=== PATIENT | female | born 1950 | race Caucasian/White ===

== ENCOUNTER 2017-04-09 09:17 | Emergency (ER) | payer MEDICARE, MEDICAID ==
[~2017-04-09] VITALS: Ht 162.6 cm; Wt 75.0 kg
[~2017-04-09 09:17] MED LIST: ADVAIR DISK1 IN; ADVAIR DISK1 INH; AMITRIPTYLIN25 MG PO; ATORVASTATIN CA40 MG PO; BUPROPION150 M3 PO; CIPROFLOXACN500 MG PO; CLINDAMYCIN300 M1 PO; CREON24000 UNT PO; DULOXETINE HCL60 MG PO; FERROUS SULF324 M1 PO; FLEXERIL PO; FLUTICASONE PR50 MCG; LORTAB 7.5-3251 TAB PO; MOTRIN800 MG PO; NEXIUM40 M1 PO; OXYCODONE20 M1 PO; OXYCODONE5 MG PO; PHENERGAN25 MG/TAB PO; SOMA350 MG PO; SPIRIVA IN; STOOL SOFTENER PO; TEMAZEPAM30 MG PO; TUSSIONEX1 ML PO; TYLENOL # 31 TAB PO; VENTOLIN HF1 IN; ZITHROMAX250 MG PO; ZOLOFT50 MG PO
[2017-04-09] MEDS ORDERED: PERCOCET 5/325M1 TAB PO (09:40)
[2017-04-09 09:41] VITALS: BP 148/77
== END 2017-04-09 09:48 | disposition home or self-care (01) ==
LOC: ED 09:17
DX: S43.401A Unspecified sprain of right shoulder joint, initial encounter (principal); X50.0XXA Overexertion from strenuous movement or load, initial encounter; X50.3XXA Overexertion from repetitive movements, initial encounter; Y93.K1 Activity, walking an animal; Y92.009 Unspecified place in unspecified non-institutional (private) residence as the place of occurrence of the external cause

== ENCOUNTER 2017-06-24 05:37 | Day surgery (SDC) | payer MEDICARE, MEDICAID ==
[~2017-06-24] VITALS: Ht 162.6 cm; Wt 71.7 kg
[~2017-06-24 05:37] MED LIST changes: +BACLOFEN10 MG PO; +FLUOXETINE20 MG PO; +MORPHINE SUL15 MG PO; +MORPHINE SULFAT15 M1 PO; +PERCOCET 5/325M1 TAB PO; +RESTORIL15 M1 PO; +TYLENOL PM PO
[2017-06-24 09:35] VITALS: BP 127/71
[2017-06-24] MEDS ORDERED: PERCOCET 10/31 COMBO PO (09:37)
== END 2017-06-24 10:00 | disposition home or self-care (01) ==
LOC: ORM 05:37
PROVIDERS: ATTEND Orthopaedic Surgery
PROC: 0LN70ZZ Release Right Hand Tendon, Open Approach (ICD-10-PCS; principal; 2017-06-24)
PROC: 0LN70ZZ Release Right Hand Tendon, Open Approach (ICD-10-PCS; 2017-06-24)
PROC: 0LN70ZZ Release Right Hand Tendon, Open Approach (ICD-10-PCS; 2017-06-24)
DX: M65.321 Trigger finger, right index finger (principal); M65.341 Trigger finger, right ring finger; M65.351 Trigger finger, right little finger

== ENCOUNTER 2018-06-28 10:21 | Emergency (ER) | payer MEDICARE, MEDICAID ==
[~2018-06-28] VITALS: Ht 162.6 cm; Wt 65.0 kg
[~2018-06-28 10:21] MED LIST changes: +PERCOCET 10/31 COMBO PO
[2018-06-28 11:46] LABS: HEMATOCRIT 43.8 % (37.0-47.0); HEMOGLOBIN 14.3 g/dl (12.0-16.0); IMMATURE GRANULOCYTES 0.3 % (0.0-5.0); MEAN CELL VOLUME 95.4 fL CALC (80.0-100.0); MEAN CORPUSCULAR HGB 31.2 pG CALC (26.0-32.0); MEAN CORPUSCULAR HGB CONC 32.6 g/L CALC (32.0-36.0); NEUT# 7.97 thou/uL (2.00-7.15); RED BLOOD COUNT 4.59 mill/uL (4.20-5.60); RED CELL DISTRI WIDTH 14.7 % (11.5-15.5)
[2018-06-28 11:50] LABS: INTERNATIONAL NORMALIZED RATIO 1.1 RATIO (0.7-1.3); PROTHROMBIN TIME 11.2 SECONDS (9.0-12.5)
[2018-06-28 11:53] LABS: ALKALINE PHOSPHATASE 77 u/l (38-126); BILIRUBIN, TOTAL 0.7 mg/dL (0.0-1.4); BUN 11 mg/dL (8-23); BUN/CREATININE RATIO 15 (12-20 (CALC)); CARBON DIOXIDE 28 mmol/l (22-30); CHLORIDE 106 mmol/l (95-108); CREATININE 0.7 mg/dL (0.5-1.0); GFR > 60 ML/MIN (>=60 (CALC)); GFR FOR AFR.AMER. > 60 ML/MIN (>=60 (CALC)); LIPASE 82 u/l (23-300); SGOT/AST 24 u/l (9-36); SODIUM 143 mmol/l (137-146); TOTAL PROTEIN 6.5 g/dL (6.3-8.2)
[2018-06-28 11:54] LABS: ANION GAP 14 (6-22 (CALC))
[2018-06-28 11:55] LABS: POTASSIUM 4.6 mmol/l (3.5-5.1)
[2018-06-28 12:20] VITALS: BP 165/80
== END 2018-06-28 12:47 | disposition home or self-care (01) ==
LOC: ED 10:21
PROVIDERS: Emergency Medicine
DX: K62.89 Other specified diseases of anus and rectum (principal); C20 Malignant neoplasm of rectum; J44.9 Chronic obstructive pulmonary disease, unspecified; F17.210 Nicotine dependence, cigarettes, uncomplicated; K62.5 Hemorrhage of anus and rectum
CPT/HCPCS: S0164

== ENCOUNTER 2019-10-01 21:45 | Emergency (ER) | payer MEDICARE ==
[2019-10-01 22:22] LABS: HEMATOCRIT 29.9 % (37.0-47.0); IMMATURE GRANULOCYTES 1.9 % (0.0-5.0); MEAN CORPUSCULAR HGB 31.4 pG CALC (26.0-32.0); MEAN CORPUSCULAR HGB CONC 33.4 g/dL CAL (32.0-36.0); NEUT# 11.59 thou/uL (2.00-7.15); RED BLOOD COUNT 3.18 mill/uL (4.20-5.60); RED CELL DISTRI WIDTH 15.5 % (11.5-15.5)
[2019-10-01 22:38] LABS: ACT PARTIAL THROMBO TIME 33.6 SECONDS (20.0-32.5); PROTHROMBIN TIME 10.2 SECONDS (9.0-12.5)
[2019-10-01 22:42] LABS: ALBUMIN 3.4 g/dL (3.2-5.0); ALKALINE PHOSPHATASE 89 u/l (38-126); AMYLASE 31 u/l (30-110); ANION GAP 12 (6-22 (CALC)); BILIRUBIN, TOTAL 0.7 mg/dL (0.0-1.4); BUN 11 mg/dL (8-23); BUN/CREATININE RATIO 15 (12-20 (CALC)); CARBON DIOXIDE 24 mmol/l (22-30); CHLORIDE 102 mmol/l (95-108); CREATININE 0.7 mg/dL (0.5-1.0); GFR > 60 ML/MIN (>=60 (CALC)); GFR FOR AFR.AMER. > 60 ML/MIN (>=60 (CALC)); LIPASE 45 u/l (23-300); POTASSIUM 4.2 mmol/l (3.5-5.1); SGOT/AST 24 u/l (9-36); TOTAL PROTEIN 6.3 g/dL (6.3-8.2)
[2019-10-01 22:44] LABS: SODIUM 134 mmol/l (137-146)
[2019-10-01 22:53] LABS: MYOGLOBIN 87 ng/mL (0 - 62)
[2019-10-02 02:07] VITALS: BP 172/92
== END 2019-10-02 02:10 | disposition short-term general hospital (02) ==
LOC: ED 21:45
PROVIDERS: Emergency Medicine
DX: K56.609 Unspecified intestinal obstruction, unspecified as to partial versus complete obstruction (principal); J44.9 Chronic obstructive pulmonary disease, unspecified; F17.200 Nicotine dependence, unspecified, uncomplicated; Z85.44 Personal history of malignant neoplasm of other female genital organs; Z93.3 Colostomy status; Z85.048 Personal history of other malignant neoplasm of rectum, rectosigmoid junction, and anus
CPT/HCPCS: Q9967

== ENCOUNTER 2019-11-23 18:35 | Inpatient (IN) | payer MEDICARE ==
[~2019-11-23] VITALS: Ht 162.6 cm; Wt 55.0 kg
--- NOTE | 2019-11-23 18:36 | NUR ---
BY EMS TO ROOM
[2019-11-23 20:25] LABS: HEMATOCRIT 32.1 % (37.0-47.0); IMMATURE GRANULOCYTES 0.3 % (0.0-5.0); MEAN CORPUSCULAR HGB 28.7 pG CALC (26.0-32.0); MEAN CORPUSCULAR HGB CONC 31.2 g/dL CAL (32.0-36.0); NEUT# 8.01 thou/uL (2.00-7.15); RED BLOOD COUNT 3.49 mill/uL (4.20-5.60); RED CELL DISTRI WIDTH 16.1 % (11.5-15.5)
[2019-11-23 20:37] LABS: INTERNATIONAL NORMALIZED RATIO 1.1 RATIO (0.7-1.3); PROTHROMBIN TIME 10.9 SECONDS (9.0-12.5)
[2019-11-23 20:38] LABS: ALKALINE PHOSPHATASE 91 u/l (38-126); ANION GAP 23 (6-22 (CALC)); BILIRUBIN, TOTAL 0.6 mg/dL (0.0-1.4); BUN 50 mg/dL (8-23); CARBON DIOXIDE 20 mmol/l (22-30); CHLORIDE 98 mmol/l (95-108); ETHYL ALCOHOL 0 mg/dl (0-30); POTASSIUM 4.8 mmol/l (3.5-5.1); SGOT/AST 38 u/l (9-36); SODIUM 136 mmol/l (137-146); TOTAL PROTEIN 7.4 g/dL (6.3-8.2)
[2019-11-23 20:47] LABS: ALBUMIN 4.5 g/dL (3.2-5.0); BUN/CREATININE RATIO 12 (12-20 (CALC)); CREATININE 4.3 mg/dL (0.5-1.0); GFR 10 ML/MIN (>=60 (CALC)); GFR FOR AFR.AMER. 12 ML/MIN (>=60 (CALC))
[2019-11-23 21:01] LABS: MYOGLOBIN 706 ng/mL (0 - 62)
--- NOTE | 2019-11-23 22:00 | NUR ---
SLEEPING. NAD. WOUND VAC TO RIGHT HIP FUNCTIONING.COLOSTOMY STOMA PINK AND HEALTHY APPEARING.
--- NOTE | 2019-11-23 23:00 | NUR ---
NO CHANGE IN EXAM
--- NOTE | 2019-11-23 23:08 | NUR ---
TELEPHONE REPORT RECEIVED FROM Delia CEBALLOS RN. ROOM 281 PREPARED FOR PTs ARRIVAL.
--- NOTE | 2019-11-23 23:20 | NUR ---
PT ARRIVES TO UNIT VIA STRETCHER, ACCOMPANIED BY Delia CEBALLOS RN. PT AMBULATORY TO BED. PT ORIENTED TO UNIT, ROOM, BED/TV/CALL LIGHT. PT VERBALIZES UNDERSTANDING. DENIES NEEDS AT THIS TIME. PT DENIES DISCONFORT AT THIS TIME. ITEMS WITHIN REACH. BED LOCKED IN LOW POSITION WITH BEDRAILS UP X2. CALL LUEVANO WITHIN REACH. AGREES TO CALL PRN.
[2019-11-24] VITALS (7 sets, daily range): BP systolic 101–147; BP diastolic 62–80
--- NOTE | 2019-11-24 | NUR ---
REMAINS SOMNOLENT. AROUSES TO GENTLE STIMULUS
--- NOTE | 2019-11-24 01:20 | NUR ---
TELEPHONE REPORT RECEIVED FROM Delia CEBALLOS RN. ROOM 281 PREPARED FOR PTs ARRIVAL.
--- NOTE | 2019-11-24 01:25 | NUR ---
UPON ENTERING ROOM PT APPEARS TO BE SLEEPING. APPEARS COMFORTABLE AND IN NO APPARENT DISTRESS. RESPIRATIONS ARE REGULAR AND UNLABORED. ITEMS REMAIN WITHIN REACH, BED REMAINS LOCKED IN LOW POSITION W/ BEDRAILS UP X2 AND CALL LUEVANO REMAINS WITHIN REACH.
--- NOTE | 2019-11-24 01:52 | NUR ---
UNABLE TO RECONCILE MEDS DUE TO SOMNOLENCE
--- NOTE | 2019-11-24 02:00 | NUR ---
Admission Note Report Given to: MAGDALENA BARNES Transported by: Wheelchair X Stretcher Transported with: X Nurse Transporter X Patent IV O2 X Cutter Machine Location: ICU X MS2
--- NOTE | 2019-11-24 02:01 | NUR ---
PT ARRIVES TO UNIT VIA STRETCHER, ACCOMPANIED BY Delia CEBALLOS RN. PT SLID OVER TO BED BY STAFF TO BED. PT ORIENTED TO UNIT, ROOM, BED/TV/CALL LIGHT. PT VERBALIZES UNDERSTANDING. DENIES NEEDS AT THIS TIME. PT DENIES DISCONFORT AT THIS TIME. ITEMS WITHIN REACH. BED LOCKED IN LOW POSITION WITH BEDRAILS UP X2. CALL LUEVANO WITHIN REACH. AGREES TO CALL PRN.
--- NOTE | 2019-11-24 02:38 | NUR ---
PT FOUND SITTING UP ON FLOOR, ASSISTED BACK TO BED, VSS, R FOREARM UNDERSIDE WITH SMALL ABRASION. CLEANSED AND DRESSED W/ TELFA AND TEGADERM. NO FURTHER INJURY. DR. NICOLE AWARE, NO NEW ORDERS. PT STATES SHE WAS TRYING TO GET UP TO BATHROOM. PT AGREES AGAIN NOT TO GET OOB W/O CALLING FOR ASSISTANCE. BED ALARM ON.
--- NOTE | 2019-11-24 06:20 | NUR ---
PT APPEARS TO BE SLEEPING COMFORTABLY IN BED. NO APPARENT DISTRESS. RESPIRATIONS REGULAR AND UNLABORED.PHYSICAL ASSESMENT UNCHANGED FROM BEGINING OF SHIFT BASELINE. PT AFEBRILE, HEMODYNAMICS STABLE. DENIES NEEDS AT THIS TIME. ITEMS REMAIN WITHIN REACH. BED REMAINS LOCKED IN LOW POSITION W/ BEDRAILS UPX2. CALL LUEVANO REMAINS WITHIN REACH, AGREES TO CALL PRN.
--- NOTE | 2019-11-24 08:20 | NUR ---
ASSESSMENT DONE. PT IS ALERT TO SELF. PT STATED SHE IS IN HEAVEN. REORIENT PT. PT DENIES PAIN AT THIS TIME. PURE WICK IN PLACE NO URINE AT THIS TIME. IVF INFUING WELL. SETUP PT FOR BREAKFAST. SAFETY PRECAUTIONS REINFORCED AND CALL LIGHT IN REACH.
[2019-11-24 10:03] LABS: HEMATOCRIT 32.5 % (37.0-47.0); IMMATURE GRANULOCYTES 0.3 % (0.0-5.0); MEAN CELL VOLUME 95.3 fL CALC (80.0-100.0); MEAN CORPUSCULAR HGB 29.3 pG CALC (26.0-32.0); MEAN CORPUSCULAR HGB CONC 30.8 g/dL CAL (32.0-36.0); NEUT# 8.04 thou/uL (2.00-7.15); RED BLOOD COUNT 3.41 mill/uL (4.20-5.60); RED CELL DISTRI WIDTH 16.4 % (11.5-15.5)
[2019-11-24 10:20] LABS: ALBUMIN 3.7 g/dL (3.2-5.0); BILIRUBIN, TOTAL 0.5 mg/dL (0.0-1.4); POTASSIUM 4.6 mmol/l (3.5-5.1); TOTAL PROTEIN 6.5 g/dL (6.3-8.2)
[2019-11-24 10:25] LABS: CREATININE 2.9 mg/dL (0.5-1.0)
--- NOTE | 2019-11-24 12:05 | NUR ---
PT HAS A WOUND VAC FROM HOME IN BUTTOCKS. MAGDALENA COREY CHANGE PT WOUND VAC AND DRESSING FOR ONE OF THE WOUND VAC FROM THE HOSPITAL. PT TOLERATED WELL. PICTURE WAS TAKEN. BED ALARM IN PLACE. CALL LIGHT IN REACH.
--- NOTE | 2019-11-24 12:25 | NUR ---
BLADDER SCAN PT 465ML OF URINE. NOTIFIED DR. NICOLE. ORDERS RECEIVED.
[2019-11-24 13:31] LABS: URINE BILIRUBIN - DIPSTICK SMALL (NEGATIVE); URINE BLOOD DIPSTICK NEGATIVE (NEGATIVE); URINE COLOR YELLOW; URINE GLUCOSE - DIPSTICK NEGATIVE (NEGATIVE); URINE KETONE NEGATIVE (NEGATIVE); URINE LEUK ESTERASE NEGATIVE (NEGATIVE); URINE NITRITE - DIPSTICK NEGATIVE (Negative); URINE PROTEIN - DIPSTICK TRACE mg/dL (NEG-TRACE); URINE SPECIFIC GRAVITY >=1.030; URINE UROBILINOGEN - DIPSTICK 0.2 E.U./dL (0.2)
--- NOTE | 2019-11-24 16:16 | NUR ---
PT IS RESTING IN BED. PT IS WATCHING TV. PT DENIES PAIN. WOUND VAC IN PLACE. PT DENIES ANY NEEDS AT THIS TIME. CALL LIGHT IN REACH.
--- NOTE | 2019-11-24 16:58 | NUR ---
HAD CALLED DAUGHTER OF PT IN THE AM BUT SHE DID NOT ANSWERED. LEFT A MESSAGE. PT STATED THAT SHE WAS IN [facility] FAXED TO GET RECORDS BUT THEY STATED DID NOT FIND PT.
--- NOTE | 2019-11-24 20:14 | NUR ---
ASSESSMENT COMPLETED. NO RESP. DISTRESS NOTED. PT. C/O ABDOMINAL PAIN 06/25 AND MEDICATED WITH ORDERED PRN TYLENOL. PT. IS A/AO X3 WITH BED ALARM IN PLACE FOR SAFETY PRECAUTIONS. PT. IS REMINDED TO NOT GET OOB WITHOUT STAFF ASSISTANCE AND RE-ORIENTED TO CALL LIGHT; VERBALIZES UNDERSTANDING. LLQ COLOSTOMY IN PLACE. WOUND VAC IN PLACE TO BUTTOCKS AND SET TO 125MM/HG AND NO DRAINAGE NOTED TO CANISTER. CALL LIGHT IS IN REACH.
--- NOTE | 2019-11-25 00:14 | NUR ---
PRN PERCOCET PROVIDED FOR ABD PAIN; WILL REASSESS. WOUND VAC CANISTER REMAINS WITH NO DRAINAGE NOTED. PAD CHECKED FOR LEAKAGE UNDERNEATH PT. AND NONE NOTED. WOUND VAC DRESSING APPEARS SEALED AND MACHINE READINING ITS RUNNING CONTINUOUS SUCTION. REPOSITIONED ONTO LEFT SIDE. CALL LIGHT IS IN REACH. SNACK PROVIDED.
--- NOTE | 2019-11-25 02:38 | NUR ---
RESTING IN BED WITH EYES OPEN; RESP. EVEN AND UNLABORED.VOICES NO CONCERNS. CALL LIGHT IS IN REACH.
[2019-11-25 04:21] VITALS: BP 140/76
[2019-11-25 05:04] LABS: HEMOGLOBIN 8.5 g/dl (12.0-16.0); IMMATURE GRANULOCYTES 0.4 % (0.0-5.0); MEAN CELL VOLUME 91.5 fL CALC (80.0-100.0); MEAN CORPUSCULAR HGB 28.8 pG CALC (26.0-32.0); MEAN CORPUSCULAR HGB CONC 31.5 g/dL CAL (32.0-36.0); NEUT# 5.97 thou/uL (2.00-7.15); RED BLOOD COUNT 2.95 mill/uL (4.20-5.60); RED CELL DISTRI WIDTH 16.4 % (11.5-15.5)
[2019-11-25 05:21] LABS: BILIRUBIN, TOTAL 0.4 mg/dL (0.0-1.4); POTASSIUM 4.1 mmol/l (3.5-5.1); TOTAL PROTEIN 5.3 g/dL (6.3-8.2)
--- NOTE | 2019-11-25 05:24 | NUR ---
PT. C/O ABDOMINAL AND FLANK PAIN AND MEDICATED WITH ORDERED PRN PERCOCET; WILL REASSESS. COLOSTOMY CHECKED AND VERY MINIMAL STOOL NOTED. DENIES FURTHER NEEDS. WOUND VAC REMAINS IN PLACE WITH NO DRAINAGE NOTED TO CANISTER. FRESH WATER GIVEN. ENCOURAGED TO CALL FOR ANY NEEDS.
[2019-11-25 05:27] LABS: ALBUMIN 2.9 g/dL (3.2-5.0); CREATININE 1.3 mg/dL (0.5-1.0)
[2019-11-25 07:50] VITALS: BP 154/65
--- NOTE | 2019-11-25 07:50 | NUR ---
PT RESTING IN BED, NO SIGNS OF DISTRESS NOTED, RESP EVEN AND UNLABORED. PT ALERT AND ORIENTED X3, DISCUSSED POC, PT VOICES NO NEEDS OR COMPLAINTS AT THIS TIME. PT HAS A COLOSTOMY, BAG BURPED, NO STOOL AT THIS TIME. ASSESSMENT COMPLETED, CALL LIGHT IN REACH,CONTINUE TO MONITOR.
--- NOTE | 2019-11-25 11:20 | NUR ---
AND SOAP WORKER AT BEDSIDE
[2019-11-25 11:29] VITALS: BP 153/67
--- NOTE | 2019-11-25 12:58 | NUR ---
PT STATES SHE HAD HER SURGERIES DONE AT [facility]. MEDICAL RELEASE OF INFORMATION SIGNED.
--- NOTE | 2019-11-25 14:00 | NUR ---
PT RECEIVED BED BATH, COLOSTOMY BAG CHANGED, PT TOLERATED WELL. NOTED WATERY STOOL IN BAG. WOUND VAC CONTINUES AT 125. CALL LIGHT IN REACH,CONTINUE TO MONITOR.
--- NOTE | 2019-11-25 15:02 | NUR ---
PT STATES SHE IS NAUSEOUS, FIRE MARSHAL REFINERY NOTIFIED AND ORDER OBTAINED, PT TO BE MEDICATED ONCE MEDICATION PROFILED. EMESIS BAG GIVEN.
[2019-11-25 15:49] VITALS: BP 159/93
[2019-11-25 19:29] VITALS: BP 149/77
--- NOTE | 2019-11-25 19:37 | NUR ---
ASSESSMENT COMPLETED. NO DISTRESS NOTED; WOUND VAC IN PLACE TO BUTTOCKS AND VERY MINIMAL DRAINAGE NOTED TO CANISTER AND SET TO 125MM/HG WITH CONTINUOUS SUCTION. PT. C/O PAIN TO ABDOMEN 5/10 AND MEDICATED WITH ORDERED PRN TYLENOL; WILL REASSESS. COLOSTOMY TO LLQ INTACT. IV SITE PATENT AND ORDERED IVF INFUSING WELL. ENCOURAGED TO CALL FOR ANY NEEDS. CALL LIGHT IS IN REACH.
[2019-11-26] VITALS (10 sets, daily range): BP systolic 113–179; BP diastolic 76–113
--- NOTE | 2019-11-26 00:25 | NUR ---
PT. SLEEPING AWAKENED FOR VS; VSS; NO DISTRESS NOTED; VS OBTAINED. DENIES NEEDS/PAIN. COLOSTOMY BAG CHECKED AND NO BM NOTED. ENCOURAGED TO CALL FOR ANY NEEDS. CALL LIGHT IS IN REACH.
--- NOTE | 2019-11-26 02:27 | NUR ---
PT. C/O BUTTOCK PAIN AND MEDICATED WITH ORDERED PRN PERCOCET; ASSISTED TO REPOSITION. FRESH WATER PROVIDED.
--- NOTE | 2019-11-26 05:02 | NUR ---
RESTING IN BED WITH EYES CLOSED; FRESH WATER GIVEN. CALL LIGHT IS IN REACH.
[2019-11-26 05:08] LABS: HEMATOCRIT 29.7 % (37.0-47.0); HEMOGLOBIN 9.2 g/dl (12.0-16.0); MEAN CELL VOLUME 92.2 fL CALC (80.0-100.0); MEAN CORPUSCULAR HGB 28.6 pG CALC (26.0-32.0); RED BLOOD COUNT 3.22 mill/uL (4.20-5.60); RED CELL DISTRI WIDTH 16.4 % (11.5-15.5)
[2019-11-26 05:16] LABS: ALKALINE PHOSPHATASE 67 u/l (38-126); ANION GAP 10 (6-22 (CALC)); BILIRUBIN, TOTAL 0.4 mg/dL (0.0-1.4); BUN 22 mg/dL (8-23); BUN/CREATININE RATIO 27 (12-20 (CALC)); CARBON DIOXIDE 19 mmol/l (22-30); CHLORIDE 109 mmol/l (95-108); CREATININE 0.8 mg/dL (0.5-1.0); GFR > 60 ML/MIN (>=60 (CALC)); GFR FOR AFR.AMER. > 60 ML/MIN (>=60 (CALC)); POTASSIUM 4.4 mmol/l (3.5-5.1); SGOT/AST 24 u/l (9-36); SODIUM 134 mmol/l (137-146); TOTAL PROTEIN 5.4 g/dL (6.3-8.2)
--- NOTE | 2019-11-26 07:05 | NUR ---
[id number]. REPORTING SOB AND SPO2 83% APPLIED O2 @4LITERS/MIN PER NC AND SPO2 UP TO 90%. LS WHEEZES POSTERIORLY AND TACHYCARDIC WITH RH 110'S. DR. NICOLE NOTIFIED AND NEW ORDERS RECEIVED.
--- NOTE | 2019-11-26 07:10 | NUR ---
REPORT RECEIVED FROM MAGDALENA MARC. PT SEMI FOWLERS IN BED WITH INCREASED DIFFICULTY BREATHING EVEN WITH OXYGEN IN PLACE 90-91% ON 4L; PT NOW WITH LABORED BREATHING AND RESPIRATIONS AT 45. DIAPHORETIC AND PALE. RT AT BEDSIDE FOR EVAL AND EKG.
--- NOTE | 2019-11-26 07:20 | NUR ---
RAPID RESPONSE CALLED FOR WORSENING CONDITION. ACCU CHECK 126. TEMP 97.4. DIFFICULTY OBTAINING BLOOD PRESSURE.
--- NOTE | 2019-11-26 07:23 | NUR ---
OXYGEN INCREASED TO 6L AND RT OBTAINED ABG. DR. NICOLE AT BEDSIDE; IV FLUIDS D/C'D AT 0705 AND LASIX GIVEN 40 IV.
--- NOTE | 2019-11-26 07:27 | NUR ---
PT NOW ON NONREBREATHER; SPO2 96%; RESPIRATIONS REMAIN LABORED IN THE 40'S; PT WITH QUICK SHALLOW BREATHS. PT GIVES DR. NICOLE VERBAL CONSENT FOR INTUBATION IF NECESSARY. RADIOLOGY AT BEDSIDE; PORTABLE CXR OBTAINED. LAB AT BEDSIDE; DIFFICULTY GETTING BLOOD WORK; PT HAS POOR VENOUS ACCESS.
--- NOTE | 2019-11-26 07:32 | NUR ---
BIPAP APPLIED BY RESPIRATORY 14/20/70%. VSS 172/113 HR 138. SPO2 100% WITH BIPAP ON. PT TRANSPORTED TO ICU BED 2 WITH MEDSUR STAFF AND RT. BEDSIDE REPORT GIVEN TO MAGDALENA SHARIF.
--- NOTE | 2019-11-26 07:56 | NUR ---
female pt received from med surg via bed accompanied by staff x3; bedside report received from Kvng Cool RN; assessment completed at this time; pt alert and oriented; denies pain; no n/v noted; pt very diaphoretic/ pale/ clammy; resp tachypneic/ shallow; resp rate 40s; lungs coarse/ wheezing anter; diminished posterior with crackles in bases; skin color pale; bipap intact with settings of 16/7, 50% FiO2; hr reg; strong pulses; no edema noted; st 140-150s on monitor; abd soft with bs present; colostomy noted to left upper abd; stoma pink and healthy appearing; liq brown stool noted to colostomy bag; hauser to gravity draining clear yellow urine; #22 flushed and patent to lfa; no redness or edema noted at site; wound vac intact to coccyx area; no drainage noted; wound vac set at 125mm/hg cont suction; dressing cdi to post lfa; plan of care reviewed; Dr Leigh present at bedside; contract technical writer remains at bedside; will continue to monitor
--- NOTE | 2019-11-26 08:38 | NUR ---
Dr Leigh and Dr Caruso present at bedside to assess pt and discuss plan of care
--- NOTE | 2019-11-26 08:44 | NUR ---
Dr Leigh and Dr Caruso present at bedside; meds explained; cardizem 10mg ivp slowly administered; st 157 prior to push; 0849- st 139 on monitor; sba underwriter remains at bedside; will continue to monitor
[2019-11-26 08:50] LABS: HEMATOCRIT 35.8 % (37.0-47.0); HEMOGLOBIN 10.7 g/dl (12.0-16.0); IMMATURE GRANULOCYTES 1.5 % (0.0-5.0); MEAN CELL VOLUME 94.5 fL CALC (80.0-100.0); MEAN CORPUSCULAR HGB 28.2 pG CALC (26.0-32.0); MEAN CORPUSCULAR HGB CONC 29.9 g/dL CAL (32.0-36.0); NEUT# 12.12 thou/uL (2.00-7.15); RED BLOOD COUNT 3.79 mill/uL (4.20-5.60); RED CELL DISTRI WIDTH 16.4 % (11.5-15.5)
--- NOTE | 2019-11-26 08:56 | NUR ---
CALL YENY FOR CD OF RADIOLOGY.
--- NOTE | 2019-11-26 09:00 | NUR ---
INITIATED TRANSFERR TO [facility], SPOKE WITH RADHA [phone]. DX. ACUTE RESPIRATORY FAILURE.
--- NOTE | 2019-11-26 09:07 | NUR ---
NOTIFIED LONA RENE FOR AUTH FOR BIO FIRE.
--- NOTE | 2019-11-26 09:13 | NUR ---
FACE SHEET FAXED TO [facility]. [phone]
--- NOTE | 2019-11-26 09:19 | NUR ---
RECEIVED A CALL FROM ANJU WALLACE RN ADMINISTRATION PERMISSION GIVEN FOR RAPID TEST TO BE COMPLETED
--- NOTE | 2019-11-26 09:25 | NUR ---
resting with eyes closed; easily aroused; admits to breathing and feeling a little better; resp less labored/tachypneic; am meds explained and administered; bipap reapplied and maintained; hauser to gravity; iv intact; st on monitor; wound vac intact and patent; call light within reach; will continue to monitor
--- NOTE | 2019-11-26 10:22 | NUR ---
resting in bed with eyes closed; no apparent distress noted; st on monitor; hauser to gravity; bipap intact and maintained; call light within rech; will continue to monitor
--- NOTE | 2019-11-26 11:09 | NUR ---
Dr Leigh called this program writer; update provided; on monitor; bp 134/88; u/o 700; will continue to monitor
--- NOTE | 2019-11-26 12:03 | NUR ---
[facility] transfer center Jessica called per sheet writer; updated on covid swab results; abg to be faxed (done); awaiting return call
--- NOTE | 2019-11-26 12:13 | NUR ---
pt resting in bed with eyes closed; no apparent distress noted; easily aroused; offers no complaints; iv intact; hauser to gravity; bipap maintained with 40% FiO2; st on monitor; call light within reach; will continue to monitor
--- NOTE | 2019-11-26 13:20 | NUR ---
call received from [facility]; spoke with Jessica; room assignment 4A 10A; report to be called to [phone]
--- NOTE | 2019-11-26 13:28 | NUR ---
Dr valderrama called per technical document writer; permission received to convert pt to cpap for ground transport with [facility] transport
--- NOTE | 2019-11-26 13:31 | NUR ---
CALLED JOEL , SPOKE WITH ELLIOT. PT TO BE TRANSFERRED TO [facility]. [facility] ETA 30 MIN.
--- NOTE | 2019-11-26 13:38 | NUR ---
[facility] transfer center Edson called; informed of ETA 30 for ground picking supervisor
--- NOTE | 2019-11-26 14:00 | NUR ---
awake in bed; plan of care/ transfer explained; pt request for this poem writer to removed nitro paste/ removed; will continue to monitor
--- NOTE | 2019-11-26 14:35 | NUR ---
pt transferred with [facility] in stable condition; personal wound vac intact; iv intact and patent; belongings sent with pt
--- NOTE | 2019-11-26 14:41 | NUR ---
typewriter operator automatic has attempted to reach daughter multiple times; pt has provided phone # of [phone]; mailbox full; unable to leave message
--- NOTE | 2019-11-26 14:55 | NUR ---
report called to [facility] ALFREDA Coronado;
--- NOTE | 2019-11-27 09:14 | NUR ---
11/25/19 Patient screeend for rehab needs and she is not appropriate at this time. We will follow for future rehab needs
== END 2019-11-26 14:35 | disposition short-term general hospital (02) | DRG 917 ==
LOC: ED 18:35 → ED-I 21:07 → ED 21:33 → ICU 21:34 → ED-I 21:46 → MS2 22:45 → ICU 11-26 07:56
PROVIDERS: Emergency Medicine; Nurse Practitioner Family; ADMIT Internal Medicine; ATTEND Internal Medicine
PROC: 0T9B70Z Drainage of Bladder with Drainage Device, Via Natural or Artificial Opening (ICD-10-PCS; principal; 2019-11-24)
PROC: 5A09357 Assistance with Respiratory Ventilation, Less than 24 Consecutive Hours, Continuous Positive Airway Pressure (ICD-10-PCS; 2019-11-26)
DX: T40.2X1A Poisoning by other opioids, accidental (unintentional), initial encounter (principal); G92 Toxic encephalopathy; I26.99 Other pulmonary embolism without acute cor pulmonale; J96.01 Acute respiratory failure with hypoxia; N17.9 Acute kidney failure, unspecified; C20 Malignant neoplasm of rectum; T42.8X1A Poisoning by antiparkinsonism drugs and other central muscle-tone depressants, accidental (unintentional), initial encounter; T42.4X1A Poisoning by benzodiazepines, accidental (unintentional), initial encounter; T39.1X1A Poisoning by 4-Aminophenol derivatives, accidental (unintentional), initial encounter; E78.5 Hyperlipidemia, unspecified; J44.9 Chronic obstructive pulmonary disease, unspecified; E86.0 Dehydration; R33.9 Retention of urine, unspecified; L89.159 Pressure ulcer of sacral region, unspecified stage; Y92.009 Unspecified place in unspecified non-institutional (private) residence as the place of occurrence of the external cause; Z93.3 Colostomy status; Z87.891 Personal history of nicotine dependence; Z90.49 Acquired absence of other specified parts of digestive tract; Z20.828 Contact with and (suspected) exposure to other viral communicable diseases
CPT/HCPCS: J1650

== ENCOUNTER 2020-02-09 12:59 | Emergency (ER) | payer MEDICARE ==
[~2020-02-09] VITALS: Ht 162.6 cm; Wt 50.3 kg
[2020-02-09 13:26] LABS: HEMATOCRIT 31.1 % (37.0-47.0); HEMOGLOBIN 9.4 g/dl (12.0-16.0); IMMATURE GRANULOCYTES 0.4 % (0.0-5.0); MEAN CELL VOLUME 94.2 fL CALC (80.0-100.0); MEAN CORPUSCULAR HGB 28.5 pG CALC (26.0-32.0); MEAN CORPUSCULAR HGB CONC 30.2 g/dL CAL (32.0-36.0); NEUT# 4.72 thou/uL (2.00-7.15); RED BLOOD COUNT 3.3 mill/uL (4.20-5.60); RED CELL DISTRI WIDTH 20.3 % (11.5-15.5)
[2020-02-09 13:40] LABS: ALBUMIN 2.9 g/dL (3.2-5.0); BILIRUBIN, TOTAL 0.4 mg/dL (0.0-1.4); BUN 11 mg/dL (8-23); BUN/CREATININE RATIO 14 (12-20 (CALC)); CHLORIDE 104 mmol/l (95-108); CREATININE 0.8 mg/dL (0.5-1.0); GFR > 60 ML/MIN (>=60 (CALC)); GFR FOR AFR.AMER. > 60 ML/MIN (>=60 (CALC)); POTASSIUM 4.1 mmol/l (3.5-5.1); SGOT/AST 31 u/l (9-36); SODIUM 135 mmol/l (137-146); TOTAL PROTEIN 5.9 g/dL (6.3-8.2)
[2020-02-09 13:45] LABS: ALKALINE PHOSPHATASE 122 u/l (38-126); ANION GAP 10 (6-22 (CALC)); CARBON DIOXIDE 25 mmol/l (22-30)
[2020-02-09 15:59] VITALS: BP 118/66
== END 2020-02-09 15:59 | disposition home or self-care (01) ==
LOC: ED 12:59
DX: R60.0 Localized edema (principal); J44.9 Chronic obstructive pulmonary disease, unspecified